=== PATIENT | female | born 1995 | race Caucasian/White ===

== ENCOUNTER 2022-04-04 12:59 | Emergency (ER) | payer OTHER ==
[2022-04-04 13:23] VITALS: BP 110/69; PULSE 95; RESP 20; TEMP 98.2; BMI 29.2
[2022-04-04] MEDS ORDERED: KETOROLAC TROMETHAMINE 30 MG/1 ML VIAL IM ONE (13:34)
[2022-04-04] MEDS ORDERED: ONDANSETRON 4 MG TABLET PO ONE (13:35)
[2022-04-04] MEDS ORDERED: hydrOXYzine PAMOATE 25 MG CAPSULE (FP) PO ONE ×2 (13:35→14:00)
[2022-04-04] MEDS ORDERED: ONDANSETRON *ODT* 4 MG TABLET SL ONE (13:55)
[2022-04-04] MEDS ORDERED: KETOROLAC TROMETHAMINE 30 MG/1 ML VIAL ONE (14:00)
[2022-04-04] MEDS ORDERED: ONDANSETRON *ODT* 4 MG TABLET ONE (14:00)
[2022-04-04 14:31] LABS: INR 1.16 (0.83-1.09); PROTHROMBIN TIME (PATIENT) 13.4 SEC (9.7-13.0)
[2022-04-04 14:34] LABS: ACTIVATED PTT 28.2 SECONDS (25.2-36.5); HCG,QUALITATIVE URINE Negative
[2022-04-04 14:40] LABS: ALBUMIN 3.9 g/dl (3.4-5.0); BILIRUBIN,TOTAL 0.6 mg/dl (0.2-1); CALCIUM 8.9 mg/dl (8.5-10); CREATININE 0.7 mg/dl (0.55-1.3); TOT PROT 7.6 g/dl (6.4-8.2)
[2022-04-04 14:41] LABS: HEMATOCRIT 27.9 % (32.4-45.2); HEMOGLOBIN 9.1 G/dL (10.7-15.3); MCH 20.9 pg (25.7-33.7); MCHC 32.7 g/dl (32.0-36.0); MEAN CELL VOLUME 63.9 fl (80-96); MEAN PLT VOLUME 8.7 fl (7.5-11.1); PLATELET COUNT 339.8 10^3/uL (134-434); RBC 4.37 10^6/uL (3.60-5.2); RDW 26.4 % (11.6-15.6); WHITE BLOOD COUNT 12.8 10^3/uL (4.0-10.8)
[2022-04-04 15:13] LABS: PLATELET ESTIMATE ADEQUATE
[2022-04-04 15:24] LABS: AMORP URATES 2+ /hpf (NONE SEEN)
== END 2022-04-04 15:57 | disposition home or self-care (01) ==
LOC: FER 12:59
PROC: 3E0233Z Introduction of Anti-inflammatory into Muscle, Percutaneous Approach (ICD-10-PCS; principal; 2022-04-04)
DX: N93.9 Abnormal uterine and vaginal bleeding, unspecified (principal); R10.2 Pelvic and perineal pain
CPT/HCPCS: 36415; 80053; 81003; 81015; 84703; 85025; 85610; 85730; 86850; 86900; 86901; 99284-25; Q0162